=== PATIENT | male | born 1990 ===

== ENCOUNTER 2019-09-27 01:28 | Emergency (ER) | payer OTHER ==
[~2019-09-27] VITALS: Ht 175.3 cm; Wt 77.1 kg
[2019-09-27] MEDS ORDERED: TECFIDERA240 MG (01:49)
[2019-09-27] MEDS ORDERED: MEDROL4 MG PO ×2 (08:36→08:37)
[2019-09-27] MEDS ORDERED: BENADRYL25 MG PO ×2 (08:36→08:37)
== END 2019-09-27 08:43 | disposition home or self-care (01) ==
LOC: ER 01:28
DX: R60.0 Localized edema (principal); T39.015A Adverse effect of aspirin, initial encounter; Y92.89 Other specified places as the place of occurrence of the external cause